=== PATIENT | male | born 1995 | race African-American/Black ===

== ENCOUNTER 2018-10-25 21:59 | Emergency (ER) | payer MEDICAID, OTHER ==
[2018-10-25] MEDS: HYDROCODONE/APAP (5/325) TAB PO (22:57)
== END 2018-10-26 00:19 | disposition home or self-care (01) ==
LOC: FTE 10-26 00:19
DX: S00.81XA Abrasion of other part of head, initial encounter (principal); R51 Headache; Y04.8XXA Assault by other bodily force, initial encounter
CPT/HCPCS: 70450; 70486; 99284-25